=== PATIENT | male | born 1950 | race Caucasian/White ===

== ENCOUNTER 2019-06-12 00:26 | Observation (INO) | payer OTHER, MEDICARE ==
[~2019-06-12] VITALS: Ht 182.9 cm; Wt 90.3 kg
[2019-06-12] VITALS (15 sets, daily range): BP systolic 99–148; BP diastolic 57–88
[~2019-06-12 00:26] MED LIST: CARB-82 PO; HYDR-385 PO
[2019-06-12] MEDS ORDERED: LIDOCAINE/SOD BICARB 8.4% SYR ID ONE (06:00)
[2019-06-12] MEDS ORDERED: NORMOSOL R SOLN(*) 1000 ML BAG 1,000 ML IV PRN (06:00)
[2019-06-12] MEDS ORDERED: MIDAZOLAM 2 MG/2 ML VIAL IVP PRN (06:00)
[2019-06-12] MEDS ORDERED: BACITRACIN 50000 UNIT/VIAL 50,000 UNIT in NS 0.9% IRRIG(*) 1000ML PLCT 1,000 ML IR PRN (06:00)
[2019-06-12] MEDS ORDERED: ACETAMINOPHEN 500 MG TAB PO ONE (06:00)
[2019-06-12] MEDS ORDERED: PREGABALIN 150 MG CAPSULE PO ONE (06:00)
[2019-06-12] MEDS ORDERED: ceFAZolin(*) 2GM/D5W 50ML 50 ML IVPB ONE (06:00)
[2019-06-12] MEDS ORDERED: FAMOTIDINE 20 MG TAB PO ONE (06:00)
[2019-06-12] MEDS ORDERED: ROPIVACAINE 0.2% 20 ML VIAL ONE (06:35)
[2019-06-12] MEDS ORDERED: THROMBIN (BOVINE) 20,000 UNIT VIAL ONE (06:35)
[2019-06-12] MEDS ORDERED: fentaNYL CITR 250 MCG/5 ML AMP ONE (06:44)
[2019-06-12] MEDS ORDERED: LIDOCAINE 2% IV 100 MG/5ML SYR ONE (06:44)
[2019-06-12] MEDS ORDERED: PROPOFOL EMUL(*) 10MG/ML 20 ML 80 ML ONE (06:45)
[2019-06-12] MEDS ORDERED: ROCURONIUM BR 10 MG/ML 5 ML SY 5 ML ONE ×2 (06:49→07:32)
[2019-06-12] MEDS ORDERED: KETAMINE HCL 200 MG/20 ML MDV ONE ×2 (07:16→08:20)
[2019-06-12] MEDS ORDERED: ONDANSETRON 4 MG/2 ML VIAL ONE (07:25)
[2019-06-12] MEDS ORDERED: DEXAMETHASONE SOD PHOS 10MG/ML ONE (07:25)
[2019-06-12] MEDS ORDERED: SUGAMMADEX SOD 200 MG/2 ML SDV ONE (07:53)
[2019-06-12] MEDS ORDERED: PROPOFOL EMUL(*) 10MG/ML 20 ML 20 ML ONE ×2 (08:42→09:22)
--- NOTE | 2019-06-12 09:49 | RADIOLOGY IMAGING REPORT ---
FACILITY: [facility] PATIENT NAME: Chapito Patel : 1950 MR: [id number] V: [id number] EXAM DATE: [id number] ORDERING PHYSICIAN: FINESSE MARAVILLA TECHNOLOGIST: Location: [facility] Patient: Chapito Patel : 1950 Visit/Account:[id number] Date of Sevice: 06/12/2019 Exam type: XR LUMBAR SPINE SINGLE VIEW History: L4-L5 DISC HERNIATION/FUSION Comparison: April 18, 2019. Findings: Three portable intraoperative crosstable lateral views lumbar spine were submitted. On image one met allic probe projects over the posterior spinous process of L4. This radiopaque sponge markers projec t over the dorsal soft tissues of the lower lumbar spine. Image #2 demonstrates pedicle screw at L5. Additional metallic instruments and sponge markers projec t over the dorsal aspect lower lumbar spine. Image #3 demonstrates posterior lumbar interbody fusion with bilateral pedicle screws and short segme nt posterior fixation rods at L4 and L5. Incidentally noted is mild loss of height of the L2 vertebr al body that appears similar to the prior study IMPRESSION: 1. As above Report Dictated By: Brandi Vo MD at 06/12/2019 9:38 AM Report E-Signed By: Brandi Vo MD at 06/12/2019 9:41 AM WSN:[email or web address]
[2019-06-12] MEDS ORDERED: fentaNYL CITR 100 MCG/2 ML AMP ONE ×2 (10:08→10:30)
--- NOTE | 2019-06-12 10:32 | OPERATIVE REPORT 1 ---
EVENT DATE: June 12, 2019 SURGEON: Sabas Larose MD ANESTHESIOLOGIST: Vadim Burden MD ANESTHESIA: General endotracheal. TAX ACCOUNTING ASSISTANT: Nicolás Monet PA-C PREOPERATIVE DIAGNOSIS Lumbar spinal stenosis at L4-L5 with neurogenic claudication and L4-L5 lateral listhesis. POSTOPERATIVE DIAGNOSIS Lumbar spinal stenosis at L4-L5 with neurogenic claudication and L4-L5 lateral listhesis. PROCEDURE PERFORMED L4-L5 laminectomy and L4-L5 posterior lateral instrumented fusion with pedicle screws. IV FLUIDS 2400 cc. ESTIMATED BLOOD LOSS 120 cc. IMPLANTS USED 1. 6.5 mm x 45 mm pedicle screws from Truspine x4. 2. 5.5 mm x 40 mm connecting rods from Truspine x2. 3. Locking caps from Truspine x4. SPECIMENS None. DRAINS None. COMPLICATIONS None. DISPOSITION Post-Anesthesia Care Unit. INDICATIONS Mr. Patel is a 68-year old gentleman who presented to my clinic with a complaint of bilateral radiating buttock pain, numbness and tingling. He had a complaint of pain made worse with extension of the lumbar spine and noted occasional numbness in the anterior thighs not related to any specific activity. His physical examination revealed intact strength and sensation throughout. His diagnostic studies showed a lateral listhesis at the L4-L5 level as well as severe spinal stenosis at L4-L5 secondary to large broad-based disk bulge coupled with facet hypertrophy and ligamentum flavum thickening. This resulted in severe canal stenosis with complete loss of sedimentation sign. The symptoms into his buttocks and down the thighs, in my opinion, were certainly coming from that level and secondary to Mr. Patel failure to improve with physical therapy and other nonoperative care such as medications, activity modification, etc. Mr. Patel was offered and elected to undergo L4-L5 laminectomy with posterior lateral instrumented fusion. Prior to surgery, I explained in detail to the patient the possible risks of surgery. These risks include bleeding, infection, damage to surrounding structures, nerve root injury, spinal fluid leak, meningitis, persistent and/or worsening pain, failure of instrumentation, need for further surgery, , blindness, sexual dysfunction, autonomic nervous system dysfunction and other unforeseen medical and surgical complications. An understanding that in general spinal surgery is more predictive at improving extremity discomfort than actual spine pain was stressed. DESCRIPTION OF PROCEDURE On the date of surgery, the patient was met in the preoperative hold area and all questions were answered. The operative site was identified and marked by myself. The patient was then brought in good condition to the operating room and after succumbing to anesthesia was positioned in the prone position on a Sesar table. All bony protuberances and soft tissues were well padded in the standard fashion. Care was taken to maintain appropriate perfusion pressures during anesthesia. Preoperative antibiotics were administered according to the appropriate timing schedule. At the conclusion of the procedure, sponge and needle counts were correct x2. A final time-out was undertaken to confirm correct patient, correct levels and correct surgery. The patient was then prepped and draped in the standard sterile orthopedic fashion. A vertical incision was made overlying the intended surgical levels and sharp dissection was carried out down to the posterior elements. Soft tissues were elevated off the posterior elements in a subperiosteal manner and a lateral radiograph was obtained to confirm appropriate spinal level. I dissected soft tissues off the posterior elements out to the tips of the transverse processes of L4 and L5 bilaterally, exposing the starting point for pedicle screws at approximately the junction of the pars intra-articularis, the midpoint of the transverse process and the lateral aspect of the superior articular process. I then packed thrombin soaked sponges into the lateral gutters for hemostasis and to maintain space for future placement of pedicle screws. Attention was then turned to the laminectomy portion of the procedure. A Leksell rongeur was used to remove the spinous process of L4 and the lamina was thinned down the midline using a combination of the Leksell and a high-speed bur. A Cruz curette was used to undermine the superior insertion of the ligamentum flavum from the inferior aspect of the L-4 lamina. Once I entered the canal, a [place] elevator was used to separate any dural adhesions from surrounding bone and soft tissue prior to use of the Kerrison punch. A #4 Kerrison rongeur was used to complete a midline decompression of the L4 lamina and I then performed bilateral lateral recess decompression, also using #3 and #4 Kerrisons. I removed a significant amount of overgrown bone as well as very thick ligamentum flavum from the lateral recesses, lending significant freedom to the traversing nerve roots and decompression the dura thoroughly. At the completion of the decompression portion of the procedure, a [place] elevator was passed down the lateral recesses and out the foramina of all involved nerve roots to ensure adequate decompression of the neural elements. FloSeal and surgical patties were then packed into the lateral recesses to control bleeding while the fusion portion of the procedure was performed. Starting points for pedicle screws were identified at approximately the junction of the pars intra-articularis, the midpoint of the transverse process and the lateral aspect of the superior articular processes of L4 and L5 bilaterally. A high-speed bur was used to decorticate the starting point and a Lenke type probe was then advanced against resistance through the pedicle and into the vertebral bodies. A ball tip feeler was used to palpate the pedicle superiorly, inferiorly, medially, laterally and distally to ensure absence of bony breaching. I then inserted 6.5 mm x 45 mm pedicle screws bilaterally at L4 and L5. These were tested with neurophysiologic monitoring and all tested within acceptable limits. The template was then used to measure for appropriate lashae lengths and a 40 mm lashae was selected for both sides. This was placed into the tulips and locking caps were then placed and than finally tightened using the anti-torque device. A lateral radiograph was obtained that showed excellent positioning of the instrumentation. The wound was then irrigated with 2L of antibiotic impregnated saline solution and we used a high-speed bur to decorticate the transverse processes of L4 and L5 bilaterally. We then packed those lateral recesses overlying the transverse processes with a combination of milled local bone and demineralized bone matrix combined with some cancellous chips. Once this was completed, meticulous hemostasis was obtained and the wound was closed in layers using a running Stratafix suture for the deep fascia, inverted interrupted sutures for the subcutaneous tissue and then a running subcuticular skin stitch. Sponge and needle counts were correct x2. POSTOPERATIVE CARE PLAN The patient will remain in the hospital until he meets discharge criteria. He will then be discharged home with instructions to followup in two weeks for wound check and examination. LEXA
[2019-06-12] MEDS ORDERED: ACETAMINOPHEN(*)1000 MG/100 ML 100 ML IVPB PRN (10:45)
[2019-06-12] MEDS ORDERED: BISACODYL 10 MG SUPP PR PRN (10:45)
[2019-06-12] MEDS ORDERED: ONDANSETRON 4 MG/2 ML VIAL IVP PRN (10:45)
[2019-06-12] MEDS ORDERED: FLUSH 10 ML SYR IVP PRN (10:45)
[2019-06-12] MEDS ORDERED: BENZOCAINE/MENTHOL 1 EACH LOZG PO PRN (10:45)
[2019-06-12] MEDS ORDERED: ACETAMINOPHEN 500 MG TAB PO PRN (10:45)
[2019-06-12] MEDS ORDERED: MAGNESIUM HYDROXIDE* 30ML UDCP PO PRN (10:45)
[2019-06-12] MEDS ORDERED: HYDROmorphone HCL 2 MG/ML SDV IVP PRN (10:45)
[2019-06-12] MEDS ORDERED: oxyCODONE HCL 5 MG CAP PO PRN (10:45)
[2019-06-12] MEDS ORDERED: diphenhydrAMINE 25 MG CAP PO PRN (10:45)
[2019-06-12] MEDS ORDERED: LR(*) 1000 ML BAG 1,000 ML IV PRN (10:45)
--- NOTE | 2019-06-12 12:06 | Hospitalist Consultation ---
History of Present Illness Requesting Physician Dr. Larose Reason for Consult Seizures Chief Complaint s/p lumbar fusion History of Present Illness He was admitted s/p lumbar fusion. It is reported the surgery went well and without complication. History Problems: (1) Seizure disorder Status: Chronic (2) TOM (obstructive sleep apnea) Status: Chronic Home Meds Reported Medications Hydrocodone Bit/Acetaminophen (HYDROCODON-ACETAMINOPHEN 5-325) 1 Each Tablet, 1 EACH PO Q6H, TAB 06/05/19 Carbamazepine (TEGRETOL) 200 Mg Tablet, 200 MG PO TID 06/05/19 Allergies: Coded Allergies: shellfish derived (Verified Allergy, Unknown, 06/05/19) Patient History: FH: stroke FATHER Hx Smoking: Yes (QUIT 1975, QUIT SMOKING CIGARS 2013. CURRENT VAPE) Smoking Status: Former Smoker Caffeine Intake: Coffee Caffeine/Cups Per Day: 2 CPD Hx Alcohol Use: No Hx Substance Use Disorder: No Review of Systems All Systems Reviewed/Normal: Yes, Except as Noted Musculoskeletal: Pain (lower back) Exam Vital Signs Vital Signs Date Time Temp Pulse Resp B/P (MAP) Pulse Ox O2 Delivery O2 Flow Rate FiO2 06/12/19 11:30 97.6 66 16 129/83 (98) 97 Nasal Cannula 3.0 General Appearance: Alert, Awake, No Acute Distress, Afebrile Neuro: No Gross deficits Cardiovascular: Regular Rate and Rhythm Respiratory: No Respiratory Distress Psych: Appropriate Mood & Affect Assessment and Plan Problems: (1) S/P lumbar fusion Status: Acute Assessment & Plan: Followed by Dr. Larose. Will defer VTE prophylaxis to primary. (2) Seizure disorder Status: Chronic Assessment & Plan: Continue chronic Tegretol. Last seizure 1997. Well controlled. (3) TOM (obstructive sleep apnea) Status: Chronic Assessment & Plan: He does not require CPAP. He does use mouth piece. He did bring this to use during admission. Venous Thromboembolism Antithrombotics Is Pt On Any Antithrombotics?: No SUSANNA MORRELL Jun 12, 2019 12:06
[2019-06-12] MEDS: DIAZEPAM 5 MG TAB PO PRN (12:41)
[2019-06-12] MEDS: APAP/HYDROCODONE 325/5 TAB PO PRN ×2 (13:49→20:07)
--- NOTE | 2019-06-12 15:10 | NUR ---
Physical Therapy Impression PT eval completed and pt tolerated ambulation in hallway x 150' with FWW initially due to any potential for anesthesia side effects. W/C follow with O2 also provided due to history of seizure disorder, however, W/C was not needed. Pt would benefit from use of FWW through the night until pt feels more alert overall, but will likely be able to d/c home at prior level of function without an assistive device. PT plans to address stairs in am prior to potential d/c. Physical Therapy Goals 1. Pt to be modified indep with bed mobility and sup<>sit trnsfers 2. Pt to be mod indep with sit to/from stand trnsfrs 3. Pt to be mod indep with least restrictive device to amb x 150' 4. Pt to complete up/down 4 steps with rail and SBA/Mod indep Patient's Goals
[2019-06-12] MEDS: ceFAZolin(*) 2GM/D5W 50ML 50 ML IVPB SCH ×3 (16:06→23:24)
[2019-06-12] MEDS: DOCUSATE SODIUM 100 MG CAP PO SCH (20:07)
[2019-06-12] MEDS ORDERED: CARBAMAZEPINE 200 MG TAB PO SCH (21:00)
[2019-06-13 03:17] VITALS: BP 114/76
[2019-06-13] MEDS: APAP/HYDROCODONE 325/5 TAB PO PRN ×2 (03:28→08:44)
[2019-06-13 06:57] VITALS: BP 116/69
[2019-06-13] MEDS: ceFAZolin(*) 2GM/D5W 50ML 50 ML IVPB SCH (07:16)
[2019-06-13] MEDS: DOCUSATE SODIUM 100 MG CAP PO SCH (08:25)
[2019-06-13] MEDS ORDERED: DIA5 PO (08:25)
[2019-06-13] MEDS ORDERED: LOR5/325 PO (08:27)
[2019-06-13] MEDS ORDERED: DOCU240C84 PO (08:27)
[2019-06-13] MEDS ORDERED: CARBAMAZEPINE 200 MG TAB PO SCH (09:00)
--- NOTE | 2019-06-13 09:27 | Hospitalist Progress Note ---
Subjective Progress Notes Subjective He was admitted s/p lumbar surgery. He has no complaints this morning. He had no acute events overnight. Patient Complains of: Cardiovascular: No: Chest Pain Respiratory: No: Shortness of Breath Physical Exam Vital Signs Date Time Temp Pulse Resp B/P (MAP) Pulse Ox O2 Delivery O2 Flow Rate FiO2 06/13/19 08:09 73 91 Room Air 06/13/19 06:57 98.3 12 116/69 (85) 2.0 Intake and Output 06/13/19 01:04 Intake Total 3780 ml Output Total 100 ml Balance 3680 ml Intake Oral 630 ml IV Total 1700 ml Other 1450 ml Output Estimated Blood Loss 100 ml # Voids 3 General Appearance: Alert, Awake, No Acute Distress, Afebrile Neuro: No Gross deficits Cardiovascular: Regular Rate and Rhythm Respiratory: No Respiratory Distress, Clear to Auscultation GI: Soft and Non-Tender Psych: Alert & Oriented X3, Appropriate Mood & Affect Assessment and Plan Problems: (1) S/P lumbar fusion Status: Acute Assessment & Plan: Followed by Dr. Larose. Will defer VTE prophylaxis to primary. (2) Seizure disorder Status: Chronic Assessment & Plan: Continue chronic Tegretol. Last seizure 1997. Well controlled. (3) TOM (obstructive sleep apnea) Status: Chronic Assessment & Plan: He does not require CPAP. He does use mouth piece. He did bring this to use during admission. Exam Sepsis Risk: No Definite Risk SUSANNA MORRELL SUPERVISOR SHEARING Jun 13, 2019 09:27
--- NOTE | 2019-06-13 09:39 | NUR ---
Physical Therapy Impression PT goals met. Pt is ready for d/c home with assistance of family and f/u with surgeon as scheduled. Physical Therapy Goals 1. Pt to be modified indep with bed mobility and sup<>sit trnsfers 2. Pt to be mod indep with sit to/from stand trnsfrs 3. Pt to be mod indep with least restrictive device to amb x 150' 4. Pt to complete up/down 4 steps with rail and SBA/Mod indep Patient's Goals
[2019-06-13] MEDS: DIAZEPAM 5 MG TAB PO PRN (10:07)
[2019-06-13 10:35] VITALS: BP 131/73
[2019-06-13 11:02] VITALS: Ht 182.9 cm; Wt 90.3 kg
== END 2019-06-13 08:28 | disposition home or self-care (01) ==
LOC: OR 00:26 → MED 11:25
PROVIDERS: ADMIT Orthopaedic Surgery; ATTEND Orthopaedic Surgery
DX: M48.062 Spinal stenosis, lumbar region with neurogenic claudication (principal); M43.16 Spondylolisthesis, lumbar region; G40.909 Epilepsy, unspecified, not intractable, without status epilepticus; G47.33 Obstructive sleep apnea (adult) (pediatric); Z79.899 Other long term (current) drug therapy; F17.290 Nicotine dependence, other tobacco product, uncomplicated
CPT/HCPCS: 22558; 22840; 36415; 63005; 72020; 80156; 86850; 86900; 86901; 97116; 97161; G0378; J1100; J2001; J2405; J2704; J3010; J3490; 95940; C1713; J0690; J2795